=== PATIENT | male | born 1995 | race African-American/Black ===

== ENCOUNTER 2016-12-25 11:08 | Emergency (ER) | payer OTHER ==
[~2016-12-25] VITALS: Ht 182.9 cm; Wt 93.0 kg
[2016-12-25 14:38] LABS: CLARITY URINE CLEAR (CLEAR); COLOR URINE YELLOW (YELLOW); GLUCOSE URINE NEGATIVE (NEGATIVE); KETONES URINE NEGATIVE (NEGATIVE); LEUKOCYTE ESTERASE URINE NEGATIVE (NEGATIVE); NITRITE URINE NEGATIVE (NEGATIVE); OCCULT BLOOD URINE NEGATIVE (NEGATIVE); PH URINE 6.5 (4.5-8.0); PROTEIN URINE NEGATIVE (NEGATIVE); SPECIFIC GRAVITY URINE 1.024 (1.005-1.030)
[2016-12-25 15:48] LABS: BASOPHILS % 0.4 % (0.0-2.0); EOSINOPHILS % 2.4 % (0.0-5.0); HEMATOCRIT. 46.4 % (42.0-52.0); HEMOGLOBIN. 15.6 g/dL (14.0-18.0); LYMPHOCYTES % 37.4 % (20.0-50.0); MEAN CORPUSCULAR HEMOGLOBIN 28.6 pg (28.0-32.0); MEAN PLATELET VOLUME 8.4 fl (7.4-10.4); MONOCYTES % 7.4 % (2.0-8.0); NEUTROPHILS % 52.4 % (40.0-76.0); PLATELET 181 x1000/uL (130-400); RED BLOOD CELL COUNT 5.46 mill/uL (4.7-6.1); RED CELL DISTRIBUTION WIDTH 14.2 % (11.6-14.6)
[2016-12-25 15:50] LABS: PROTHROMBIN TIME 10.7 sec (9.4-11.6)
[2016-12-25 15:53] LABS: CARBON DIOXIDE 28 mEq/L (21-32); CHLORIDE 106 mEq/L (98-107)
[2016-12-25 17:21] LABS: *AMPHETAMINES SCREEN URINE NEGATIVE (NEGATIVE); *BARBITURATES SCREEN URINE NEGATIVE (NEGATIVE); *BENZODIAZEPINES SCREEN URINE NEGATIVE (NEGATIVE); *COCAINE SCREEN URINE NEGATIVE (NEGATIVE); CANNABINOID URINE SCREEN PRESUMTIVE POSITIVE (NEGATIVE); METHADONE URINE SCREEN NEGATIVE (NEGATIVE); OPIATES URINE SCREEN NEGATIVE (NEGATIVE); PHENCYCLIDINE URINE SCREEN NEGATIVE (NEGATIVE)
[2016-12-25 17:47] VITALS: BP 133/74
== END 2016-12-25 19:11 | disposition home or self-care (01) ==
LOC: ER 12:11
DX: F12.10 Cannabis abuse, uncomplicated (principal); R07.81 Pleurodynia; R11.2 Nausea with vomiting, unspecified; K21.9 Gastro-esophageal reflux disease without esophagitis
CPT/HCPCS: 36415; 71250; 74176; 80053; 80305; 81003; 83690; 85025; 85610; 99285; Z7610

== ENCOUNTER 2017-04-27 00:23 | Emergency (ER) | payer OTHER ==
[~2017-04-27] VITALS: Ht 193 cm; Wt 127.0 kg
[2017-04-27] MEDS ORDERED: TETANUS, DIPHTHERIA, PERTUSSIS VAC/PF 0.5ML (>7YR OLD) IM ONE (03:15)
[2017-04-27] MEDS ORDERED: IBUPROFEN 600MG TABLET PO ONE (03:15)
[2017-04-27 03:18] VITALS: BP 133/70
== END 2017-04-27 04:47 | disposition home or self-care (01) ==
LOC: ER 00:23
DX: S61.012A Laceration without foreign body of left thumb without damage to nail, initial encounter (principal); W26.0XXA Contact with knife, initial encounter; Y93.G3 Activity, cooking and baking; Y92.69 Other specified industrial and construction area as the place of occurrence of the external cause; Y99.0 Civilian activity done for income or pay; Z23 Encounter for immunization
CPT/HCPCS: 12001; 73130; 90471; 90715; 99284

== ENCOUNTER 2017-05-06 12:46 | Emergency (ER) | payer OTHER | END 2017-05-06 14:06 | disposition left against medical advice (07) | LOC: ER 13:55 | DX: Z48.00 Encounter for change or removal of nonsurgical wound dressing (principal); Z53.21 Procedure and treatment not carried out due to patient leaving prior to being seen by health care provider ==

== ENCOUNTER 2017-11-04 05:54 | Emergency (ER) | payer OTHER ==
[~2017-11-04] VITALS: Ht 193 cm; Wt 117.0 kg
[2017-11-04] MEDS ORDERED: KETOROLAC 60MG/2ML VIAL IM ONE (09:15)
[2017-11-04 13:20] VITALS: BP 129/75
== END 2017-11-04 13:20 | disposition home or self-care (01) ==
LOC: ER 05:54
DX: M54.6 Pain in thoracic spine (principal)
CPT/HCPCS: 72070; 96372; 99284; J1885; Z7610

== ENCOUNTER 2018-05-03 15:11 | Emergency (ER) | payer OTHER | END 2018-05-03 17:00 | disposition left against medical advice (07) | LOC: ER 15:11 | DX: Z53.21 Procedure and treatment not carried out due to patient leaving prior to being seen by health care provider (principal) ==

== ENCOUNTER 2022-06-30 13:36 | Emergency (ER) | payer MEDICAID, OTHER ==
[~2022-06-30] VITALS: Ht 193 cm; Wt 118.0 kg
[2022-06-30 13:38] VITALS: BP 132/76
== END 2022-06-30 17:02 | disposition left against medical advice (07) ==
LOC: ER 13:47
DX: Z53.21 Procedure and treatment not carried out due to patient leaving prior to being seen by health care provider (principal); M54.2 Cervicalgia; M25.511 Pain in right shoulder; M25.561 Pain in right knee; G89.11 Acute pain due to trauma
CPT/HCPCS: 99281